=== PATIENT | female | born 1990 | race Two or more races ===

== ENCOUNTER 2020-07-10 10:52 | Day surgery (SDC) | payer OTHER ==
[2020-06-13 11:14] VITALS: BMI 21.5
[2020-07-10 11:24] VITALS: TEMP 97.8
[2020-07-10 13:59] VITALS: BP 102/71; PULSE 66
== END 2020-07-10 14:01 | disposition home or self-care (01) ==
LOC: FASU 10:52
PROVIDERS: ATTEND Internal Medicine Gastroenterology
PROC: 0DBL8ZX Excision of Transverse Colon, Via Natural or Artificial Opening Endoscopic, Diagnostic (ICD-10-PCS; 2020-07-10)
PROC: 0DBN8ZX Excision of Sigmoid Colon, Via Natural or Artificial Opening Endoscopic, Diagnostic (ICD-10-PCS; 2020-07-10)
PROC: 0DBP8ZX Excision of Rectum, Via Natural or Artificial Opening Endoscopic, Diagnostic (ICD-10-PCS; 2020-07-10)
PROC: 0DBM8ZX Excision of Descending Colon, Via Natural or Artificial Opening Endoscopic, Diagnostic (ICD-10-PCS; 2020-07-10)
PROC: 0DBK8ZX Excision of Ascending Colon, Via Natural or Artificial Opening Endoscopic, Diagnostic (ICD-10-PCS; principal; 2020-07-10 12:55)
DX: R19.7 Diarrhea, unspecified (principal); K63.5 Polyp of colon; K63.89 Other specified diseases of intestine; K64.0 First degree hemorrhoids; K64.8 Other hemorrhoids
CPT/HCPCS: 84703; 88305-TC

== ENCOUNTER 2022-09-04 11:48 | Day surgery (SDC) | payer OTHER ==
[2022-09-02 15:08] VITALS: BMI 21.7
[2022-09-04 12:12] VITALS: TEMP 97.9
[2022-09-04 14:13] VITALS: RESP 18
[2022-09-04 14:14] VITALS: BP 100/59; PULSE 64
== END 2022-09-04 14:18 | disposition home or self-care (01) ==
LOC: FASU-ENDO 11:48
PROVIDERS: ATTEND Internal Medicine Gastroenterology
PROC: 0DBL8ZX Excision of Transverse Colon, Via Natural or Artificial Opening Endoscopic, Diagnostic (ICD-10-PCS; 2022-09-04)
PROC: 0DBM8ZX Excision of Descending Colon, Via Natural or Artificial Opening Endoscopic, Diagnostic (ICD-10-PCS; 2022-09-04)
PROC: 0DB98ZX Excision of Duodenum, Via Natural or Artificial Opening Endoscopic, Diagnostic (ICD-10-PCS; 2022-09-04)
PROC: 0DB78ZX Excision of Stomach, Pylorus, Via Natural or Artificial Opening Endoscopic, Diagnostic (ICD-10-PCS; 2022-09-04)
PROC: 0DB28ZX Excision of Middle Esophagus, Via Natural or Artificial Opening Endoscopic, Diagnostic (ICD-10-PCS; 2022-09-04)
PROC: 0DB48ZX Excision of Esophagogastric Junction, Via Natural or Artificial Opening Endoscopic, Diagnostic (ICD-10-PCS; 2022-09-04)
PROC: 0DBK8ZX Excision of Ascending Colon, Via Natural or Artificial Opening Endoscopic, Diagnostic (ICD-10-PCS; principal; 2022-09-04 12:57)
DX: K63.5 Polyp of colon (principal); K64.1 Second degree hemorrhoids; K64.8 Other hemorrhoids; K29.50 Unspecified chronic gastritis without bleeding; K21.00 Gastro-esophageal reflux disease with esophagitis, without bleeding; D72.10 Eosinophilia, unspecified
CPT/HCPCS: 81025; 88305-TC; 88342-TC